=== PATIENT | female | born 1960 ===

== ENCOUNTER 2019-01-09 07:36 | Outpatient (CLI) | payer OTHER | END 2019-01-09 07:37 | disposition home or self-care (01) | LOC: C.USIC 07:37 | DX: K74.60 Unspecified cirrhosis of liver (principal) ==

== ENCOUNTER 2019-01-24 13:04 | Outpatient (CLI) | payer OTHER | END 2019-01-24 13:05 | disposition home or self-care (01) | LOC: C.LAB 13:04 | DX: K75.4 Autoimmune hepatitis (principal); R94.5 Abnormal results of liver function studies ==

== ENCOUNTER 2019-02-24 08:46 | Outpatient (CLI) | payer OTHER | END 2019-02-24 08:47 | disposition home or self-care (01) | LOC: C.LAB 08:46 | DX: K75.4 Autoimmune hepatitis (principal); E55.9 Vitamin D deficiency, unspecified ==

== ENCOUNTER 2019-03-19 12:32 | Outpatient (CLI) | payer OTHER | END 2019-03-19 12:33 | disposition home or self-care (01) | LOC: C.LAB 12:32 | DX: K75.4 Autoimmune hepatitis (principal); K76.89 Other specified diseases of liver ==